=== PATIENT | male | born 1990 | race Caucasian/White ===

== ENCOUNTER 2017-01-18 22:18 | Emergency (ER) | payer OTHER ==
[~2017-01-18] VITALS: Ht 190.5 cm; Wt 96.6 kg
[2017-01-18] MEDS ORDERED: OXYCODONE/APAP 5-325 MG TABLET PO ONE (23:00)
[2017-01-18] MEDS ORDERED: CEPHALEXIN MONOHYDRATE 500 MG CAPSULE PO ONE (23:00)
--- NOTE | 2017-01-18 23:11 | NUR ---
Patient discharged to home in stable conditon. Written and verbal after care instructions given. Patient verbalizes understanding of instructions.
[2017-01-18] MEDS ORDERED: CEPHALEXIN MONOHYDRATE 500 MG CAPSULE ONE (23:14)
[2017-01-18] MEDS ORDERED: OXYCODONE/APAP 5-325 MG TABLET ONE (23:15)
== END 2017-01-18 23:12 | disposition home or self-care (01) ==
LOC: ER 22:22
DX: S02.2XXA Fracture of nasal bones, initial encounter for closed fracture (principal); X58.XXXA Exposure to other specified factors, initial encounter; Y92.89 Other specified places as the place of occurrence of the external cause; Y93.89 Activity, other specified; Y99.8 Other external cause status
CPT/HCPCS: 99283; A4663

== ENCOUNTER 2017-02-08 03:35 | Emergency (ER) | payer SELFPAY ==
[~2017-02-08] VITALS: Ht 190.5 cm; Wt 98.0 kg
--- NOTE | 2017-02-08 04:14 | NUR ---
Patient has left elbow superficial abrasion, cleaned with normal saline, pat dryied , applied non-adhesive dressing, covered wrap gauze conforming dressing, secured with tape. Addendum: 02/08/17 at 0416 by CRYSTAL Patient has left elbow superficial abrasion, cleaned with normal saline, pat dryied , applied non-adhesive dressing, covered with wrap gauze conforming dressing, secured with tape.
[2017-02-08] MEDS ORDERED: ONDANSETRON ODT 4 MG TAB.RAPDIS SL ONE (04:30)
[2017-02-08] MEDS ORDERED: ONDANSETRON ODT 4 MG TAB.RAPDIS ONE (04:40)
--- NOTE | 2017-02-08 05:15 | NUR ---
Patient discharged to home in stable conditon. Written and verbal after care instructions given. Patient verbalizes understanding of instructions. Ambulated from ED using crutches with stable gait. Right lower leg posterior short splint CMS WNL. No further complaint of pain. Patient will be driven home by his significant other. All belongings with patient.
[2017-02-08 05:17] VITALS: BP 128/60
== END 2017-02-08 05:17 | disposition home or self-care (01) ==
LOC: ER 03:39
DX: S92.351A Displaced fracture of fifth metatarsal bone, right foot, initial encounter for closed fracture (principal); S50.311A Abrasion of right elbow, initial encounter; X58.XXXA Exposure to other specified factors, initial encounter; Y93.89 Activity, other specified; Y92.89 Other specified places as the place of occurrence of the external cause; Y99.8 Other external cause status
CPT/HCPCS: 73630; A4663; Q0162